=== PATIENT | female | born 1955 | race Caucasian/White ===

== ENCOUNTER → 2017-01-25 | Outpatient (CLI) | payer OTHER ==
[~2017-01-25] MED LIST: NFVALS90T PO
--- OUTSIDE RECORDS SUMMARY | 2017-01-25 10:07 | XMS REPORT | Continuity of Care Document ---
Author Author [facility] Organization [facility] Address Unknown Phone Unavailable Allergies Active Description Code Type Severity Reaction Onset Reported/Identified Relationship to Patient Clinical Status Yes No Known Drug Allergies [id number] Drug Allergy Unknown N/ A 01/20/2011 Medications Problems Date Dx Coded Attending Type Code Diagnosis Diagnosed By 01/20/2011 Ot 881.02 01/20/2011 Ot 882.0 01/20/2011 Ot E000.8 01/20/2011 Ot E849.0 01/20/2011 Ot E906.0 01/20/2011 Ot V06.1 01/02/2016 BE LI MD Ot 729.5 01/02/2016 BE LI MD Ot 729.81 01/16/2016 BE LI MD Ot Z12.31 Procedures Results Encounters ACCT No. Visit Date/Time Discharge Status Pt. Type Provider Facility Loc./Unit Complaint [id number] 04/10/2014 13:55:00 2013 23:59:59 CLS Outpatient BE LI MD [facility] RAD [id number] 01/02/2016 10:21:00 ACT Outpatient BE LI MD [facility] RAD [id number] 01/20/2011 20:50:00 Document Registration
--- NOTE | 2017-01-25 11:06 | Diagnostic Imaging Report ---
Left shoulder 3 radiographs. INDICATION: Injury. FINDINGS: No fracture, dislocation, or radiopaque foreign body seen. The glenohumeral and acromioclavicular joints appear grossly unremarkable. IMPRESSION: Unremarkable exam. Dictated by: Dictated on workstation # [id number]
== END ==
LOC: RAD 10:03
PROVIDERS: ATTEND Family Medicine
DX: M25.512 Pain in left shoulder (principal)
CPT/HCPCS: 73030

== ENCOUNTER 2017-04-27 09:15 | Outpatient (RCR) | payer OTHER ==
--- OUTSIDE RECORDS SUMMARY | 2017-01-28 13:22 | XMS REPORT | Continuity of Care Document ---
Author Author [facility] Organization [facility] Address Unknown Phone Unavailable Allergies Active Description Code Type Severity Reaction Onset Reported/Identified Relationship to Patient Clinical Status Yes No Known Drug Allergies [id number] Drug Allergy Unknown N/ A 01/20/2011 Medications Problems Date Dx Coded Attending Type Code Diagnosis Diagnosed By 01/20/2011 Ot 881.02 01/20/2011 Ot 882.0 01/20/2011 Ot E000.8 01/20/2011 Ot E849.0 01/20/2011 Ot E906.0 01/20/2011 Ot V06.1 01/02/2016 BE LI MD Ot 729.5 01/02/2016 BE LI MD Ot 729.81 01/16/2016 BE LI MD Ot Z12.31 01/25/2017 BE LI MD Ot 729.5 PAIN IN LIMB 01/25/2017 BE LI MD Ot 729.81 SWELLING OF LIMB 01/25/2017 BE LI MD Ot Z12.31 ENCNTR SCREEN MAMMOGRAM FOR MALIGNANT NE Procedures Results Encounters ACCT No. Visit Date/Time Discharge Status Pt. Type Provider Facility Loc./Unit Complaint [id number] 04/10/2014 13:55:00 2013 23:59:59 CLS Outpatient BE LI MD [facility] RAD PAIN SWELLING [id number] 01/25/2017 10:03:00 ACT Outpatient BE LI MD [facility] RAD LT SHOULDER PAIN [id number] 01/02/2016 10:21:00 ACT Outpatient BE LI MD [facility] RAD SCREENING [id number] 01/20/2011 20:50:00 Document Registration
== END 2017-04-28 | disposition home or self-care (01) ==
PROVIDERS: ATTEND Family Medicine
DX: M25.512 Pain in left shoulder (principal)

== ENCOUNTER 2017-04-29 09:10 | Outpatient (RCR) | payer OTHER | END 2017-05-06 09:06 | disposition home or self-care (01) | PROVIDERS: ATTEND Family Medicine | DX: M25.512 Pain in left shoulder (principal) ==

== ENCOUNTER 2020-01-04 14:40 | Emergency (ER) | payer OTHER ==
[~2020-01-04] VITALS: Ht 152 cm; Wt 63.6 kg
[2020-01-04 15:25] LABS: BASOPHILS # (AUTO) 0.1 10^3/uL (0.0-0.1); BASOPHILS % (AUTO) 1 % (0-10); EOSINOPHILS % (AUTO) 12 % (0-10); HEMATOCRIT 40 % (35-52); HEMOGLOBIN 13.1 G/DL (11.5-16.0); LYMPHOCYTES # (AUTO) 1.9 X 10^3 (1.0-4.0); LYMPHOCYTES % (AUTO) 21 % (12-44); MEAN CORPUSCULAR HEMOGLOBIN 29 PG (25-34); MEAN CORPUSCULAR HGB CONC 33 G/DL (32-36); MEAN CORPUSCULAR VOLUME 86 FL (80-99); MONOCYTES % (AUTO) 11 % (0-12); NEUTROPHILS # (AUTO) 4.9 X 10^3 (1.8-7.8); NEUTROPHILS % (AUTO) 56 % (42-75); PLATELET COUNT 325 10^3/uL (130-400); WHITE BLOOD COUNT 8.8 10^3/uL (4.3-11.0)
[2020-01-04 15:29] LABS: INR 0.9 (0.8-1.4); PROTHROMBIN TIME PATIENT 12.8 SEC (12.2-14.7)
[2020-01-04 15:36] LABS: ALANINE AMINOTRANSFERASE 22 U/L (0-55); ALBUMIN 4.5 GM/DL (3.2-4.5); ALKALINE PHOSPHATASE 99 U/L (40-136); BILIRUBIN,TOTAL 0.6 MG/DL (0.1-1.0); BUN/CREATININE RATIO 16; CALCIUM 9.2 MG/DL (8.5-10.1); CARBON DIOXIDE 28 MMOL/L (21-32); CHLORIDE 107 MMOL/L (98-107); CREATININE SERUM 0.89 MG/DL (0.60-1.30); GFR ESTIMATED > 60; GLUCOSE 103 MG/DL (70-105); POTASSIUM 3.8 MMOL/L (3.6-5.0); SODIUM 143 MMOL/L (135-145); TOTAL PROTEIN 7.3 GM/DL (6.4-8.2)
--- NOTE | 2020-01-04 15:40 | Diagnostic Imaging Report ---
PROCEDURE: CT head wo r/o stroke. TECHNIQUE: Multiple contiguous axial images were obtained through the brain without the use of intravenous contrast. Auto Exposure Controls were utilized during the CT exam to meet ALARA standards for radiation dose reduction. INDICATION: Left-sided numbness and left chest numbness. COMPARISON: No prior studies are available for comparison. FINDINGS: Ventricles and sulci are within normal limits. No sulcal effacement or midline shift is identified. No acute intra-axial or extra-axial hemorrhage is detected. Cisterns are patent. Visualized paranasal sinuses are clear. IMPRESSION: No acute intracranial process is detected. Dictated by: Dictated on workstation # [id number]
[2020-01-04 15:41] LABS: FIBRIN DEGRADATION PRODUCTS 0.26 UG/ML (0.00-0.49)
--- NOTE | 2020-01-04 15:48 | Diagnostic Imaging Report ---
INDICATION: Numbness in left arm.. TECHNIQUE: Single view chest 3:41 PM. CORRELATION STUDY: None FINDINGS: The heart size, mediastinal configuration and pulmonary vascularity are within normal limits. The lungs are clear with no consolidating infiltrate. There is no significant effusion or pneumothorax. Calcified granuloma lateral aspect right upper lobe. IMPRESSION: 1. Negative for acute abnormality of the chest. Dictated by: Dictated on workstation # [id number]
[2020-01-04 15:57] LABS: FREE T4 (FREE THYROXINE) 1.14 NG/DL (0.70-1.48)
[2020-01-04 16:04] LABS: BILIRUBIN,URINE NEGATIVE (NEGATIVE); CLARITY,URINE CLEAR; COLOR,URINE YELLOW; GLUCOSE, URINE (UA) NEGATIVE (NEGATIVE); KETONES,URINE NEGATIVE (NEGATIVE); LEUKOCYTE ESTERASE ,URINE NEGATIVE (NEGATIVE); NITRITE,URINE NEGATIVE (NEGATIVE); PROTEIN,URINE NEGATIVE (NEGATIVE)
[2020-01-04] MEDS ORDERED: HOLD METFORMIN - RECEIVED CONTRAST 20 ML VIAL IV SCH (16:15)
[2020-01-04] MEDS ORDERED: NS 100 ML (IVPB) BAG IV ONE (16:15)
[2020-01-04] MEDS ORDERED: IOHEXOL 350 MG/ML 100 ML (OMNIPAQUE 350) VIAL IV ONE (16:15)
[2020-01-04 16:23] LABS: BACTERIA,URINE NEGATIVE /HPF; SQUAMOUS EPITHELIAL CELL,UR RARE /HPF
--- NOTE | 2020-01-04 17:07 | Diagnostic Imaging Report ---
PROCEDURE: CT angiography of the head and CT angiography of the neck with and without contrast. TECHNIQUE: Contiguous noncontrast images were obtained from the skull base through the vertex. After intravenous contrast administration, helical CT angiography of the neck was performed. Source data was reformatted into 3D MIP projections. Delayed post contrast acquisition was also obtained. Auto Exposure Controls were utilized during the CT exam to meet ALARA standards for radiation dose reduction. INDICATION: Left-sided numbness. Comparison: CT head performed earlier the same date. FINDINGS: CTA Neck: The visualized portions of the aortic arch demonstrate no evidence of aneurysm or dissection. Note is made of the origin of the left vertebral artery directly off the aorta. The brachiocephalic artery is normal in course and caliber. The right and left common carotid origins are unremarkable. The origin of the left subclavian artery is patent. The common carotid arteries and internal carotid arteries demonstrate a normal course and caliber. There is calcified atherosclerotic plaque in the bilateral carotid bulbs and proximal internal carotid arteries without flow-limiting stenosis. No evidence of dissection in the carotid systems. The external carotid arteries are patent and unremarkable. The vertebral arteries are codominant. The origin of the right vertebral artery is seen and is unremarkable. The origin of the left vertebral artery is seen and is unremarkable. There is no focal stenosis seen within the neck. There is no dissection. The vertebral arteries are well visualized to up to the level of the basilar artery. The osseous structures of the cervical spine are unremarkable. Included views through the lung apices demonstrate centrilobular emphysema without focal consolidation or mass. CTA brain: Atherosclerotic plaque is seen in the ha of the bilateral terminal internal carotid arteries without significant stenosis. No stenosis is seen in the bilateral anterior, middle, and posterior cerebral arteries. 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 No evidence of aneurysm the [place] of [place]. In the posterior circulation, both of the vertebral arteries demonstrate normal opacification. The vertebral arteries are codominant. Both the right and left PICA arteries are identified. The basilar artery is normal in course and caliber. The terminal branch vessels including the superior cerebellar arteries unremarkable. IMPRESSION: 1. No stenosis or aneurysm in the [place]. 2. No stenosis or dissection the bilateral carotid and vertebral arteries. 3. Centrilobular emphysema in the lung apices. Dictated by: Dictated on workstation # [id number]
[2020-01-04] MEDS ORDERED: ASPIRIN 325 MG (5 GR) TABLET PO ONE (17:45)
--- NOTE | 2020-01-04 17:53 | ED Neurological Problem ---
General Chief Complaint: Neuro-Stroke Like Symptoms Stated Complaint: L SIDE NUMBNESS Nursing Triage Note: PATIENT HERE FOR COMPLAINTS OF NUMBNESS THAT FELT LIKE HER LEFT ARM WAS ASLEEP. SHE STATES IT WENT FROM THE CENTER OF HER BACK BETWEEN HER SHOULDER BLADES TO HER LEFT ARM. IT LASTED FOR ABOUT A MINUTE AND OCCURRED TWICE WITHIN ABOUT 20 MINS OF ARRIVAL TO ER. DENIES ANY OTHER SYMPTOMS. VITALS STABLE. Nursing Sepsis Screen: No Definite Risk Source: patient Exam Limitations: no limitations History of Present Illness Date Seen by Provider: Jan 04, 2020 Time Seen by Provider: 15:10 Initial Comments This 64-year-old woman presents to the emergency room with rather intense paresthesias in the left arm radiating from between the scapula down to the left hand. She was also experiencing paresthesia of the left lower face and to a lesser extent the left lower extremity. She had 2 episodes of this today with the second one occurring about 20 minutes prior to arrival. She has some residual paresthesia now. At triage nursing staff thought she was communicating a brief period of flaccid left upper extremity. However, after discussing in more detail with her later, she states the left arm was never actually week. She is describing more of a paresthesia rather than muscle weakness. She has no focal deficits on exam. Allergies and Home Medications Allergies Coded Allergies: No Known Drug Allergies (Unverified , 01/20/11) Home Medications Valsartan 320 Mg Tablet, 160 MG PO DAILY, (Reported) Patient Home Medication List Home Medication List Reviewed: Yes Review of Systems Review of Systems Constitutional: no symptoms reported Eyes: No Symptoms Reported Ears, Nose, Mouth, Throat: no symptoms reported Respiratory: no symptoms reported Cardiovascular: no symptoms reported Gastrointestinal: no symptoms reported Genitourinary: no symptoms reported : No Musculoskeletal: no symptoms reported Skin: no symptoms reported Psychiatric/Neurological: See HPI Endocrine: No Symptoms Reported Hematologic/Lymphatic: No Symptoms Reported Past Sscjqsk-Dregds-Jvpppj Hx Past Med/Social Hx: Reviewed Nursing Past Med/Soc Hx Patient Social History Alcohol Use: Occasionally Uses Recreational Drug Use: No Smoking Status: Never a Smoker 2nd Hand Smoke Exposure: No Recent Foreign Travel: No Contact w/Someone Who Travel: No Recent Infectious Disease Expo: No Recent Hopitalizations: No Physical Abuse: No Sexual Abuse: No Seasonal Allergies Seasonal Allergies: No Past Medical History Surgeries: No Respiratory: No Cardiac: Yes High Cholesterol, Hypertension Neurological: No Genitourinary: No Gastrointestinal: No Musculoskeletal: No Endocrine: Yes Hypothyroidsim Psychosocial: No Integumentary: No Physical Exam Vital Signs Vital Signs - First Documented 01/04/20 01/04/20 15:00 15:57 Temp 35.5 Pulse 87 Resp 20 B/P (MAP) 150/81 (104) Pulse Ox 96 O2 Delivery Room Air Capillary Refill : Less Than 3 Seconds Height, Weight, BMI Height: '" Weight: lbs. oz. kg; 27.00 BMI Method:Stated General Appearance: WD/WN, no apparent distress HEENT: PERRL/EOMI, normal ENT inspection, pharynx normal Neck: normal inspection Respiratory: lungs clear, normal breath sounds, no respiratory distress, no accessory muscle use Cardiovascular: regular rate, rhythm, no edema, no murmur Gastrointestinal: normal bowel sounds, non tender, soft Extremities: normal inspection, no pedal edema Neurologic/Psychiatric: partner II-XII nml as tested, no motor/sensory deficits, alert, normal mood/affect, oriented x 3, other (Paresthesia of the left upper extremity without true weakness or numbness) Crainal Nerves: normal hearing, normal speech, PERRL Coordination/Gait: normal finger to nose, normal gait Motor/Sensory: no motor deficit, no sensory deficit Skin: normal color, warm/dry Stroke NIH Stroke Scale Assessment Level of Consciousness: 0=Alert (0), Level of Consciousness-Questions: 0=Answers both month/age (0), LOC Commands: 0=Performs both tasks (0), Visual [place]: 0=No visual loss (0), Facial Movement (Facial Paresis): 0=Normal symmetrical mnt (0), Motor Function-Arms Right: 0=No drift (0), Motor Function-Arms Left: 0=No drift (0), Motor Function-Legs Right: 0=No drift (0), Motor Function-Legs Left: 0=No drift (0), Sensory: 0=Normal:no loss (0), Best Language: 0=No aphasia (0), Dysarthria: 0=Normal (0), Extinction & Inattention: 0=No abnormality (0), Total: 0 Progress/Results/Core Measures Results/Orders Lab Results Laboratory Tests Test 01/04/20 14:45 01/04/20 16:00 01/04/20 16:01 Range/Units White Blood Count 8.8 4.3-11.0 10^3/uL Red Blood Count 4.59 4.35-5.85 10^6/uL Hemoglobin 13.1 11.5-16.0 G/DL Hematocrit 40 35-52 % Mean Corpuscular Volume 86 80-99 FL Mean Corpuscular Hemoglobin 29 25-34 PG Mean Corpuscular Hemoglobin Concent 33 32-36 G/DL Red Cell Distribution Width 14.0 10.0-14.5 % Platelet Count 325 130-400 10^3/uL Mean Platelet Volume 10.0 7.4-10.4 FL Neutrophils (%) (Auto) 56 42-75 % Lymphocytes (%) (Auto) 21 12-44 % Monocytes (%) (Auto) 11 0-12 % Eosinophils (%) (Auto) 12 H 0-10 % Basophils (%) (Auto) 1 0-10 % Neutrophils # (Auto) 4.9 1.8-7.8 X 10^3 Lymphocytes # (Auto) 1.9 1.0-4.0 X 10^3 Monocytes # (Auto) 1.0 0.0-1.0 X 10^3 Eosinophils # (Auto) 1.0 H 0.0-0.3 10^3/uL Basophils # (Auto) 0.1 0.0-0.1 10^3/uL Prothrombin Time 12.8 12.2-14.7 SEC INR Comment 0.9 0.8-1.4 Activated Partial Thromboplast Time 33 24-35 SEC D-Dimer 0.26 0.00-0.49 UG/ML Sodium Level 143 135-145 MMOL/L Potassium Level 3.8 3.6-5.0 MMOL/L Chloride Level 107 98-107 MMOL/L Carbon Dioxide Level 28 21-32 MMOL/L Anion Gap 8 5-14 MMOL/L Blood Urea Nitrogen 14 7-18 MG/DL Creatinine 0.89 0.60-1.30 MG/DL Estimat Glomerular Filtration Rate > 60 BUN/Creatinine Ratio 16 Glucose Level 103 70-105 MG/DL Calcium Level 9.2 8.5-10.1 MG/DL Corrected Calcium 8.8 8.5-10.1 MG/DL Total Bilirubin 0.6 0.1-1.0 MG/DL Aspartate Amino Transf (AST/SGOT) 22 5-34 U/L Alanine Aminotransferase (ALT/SGPT) 22 0-55 U/L Alkaline Phosphatase 99 40-136 U/L Troponin I < 0.028 <0.028 NG/ML Total Protein 7.3 6.4-8.2 GM/DL Albumin 4.5 3.2-4.5 GM/DL Thyroid Stimulating Hormone (TSH) 0.36 0.35-4.94 UIU/ML Free Thyroxine 1.14 0.70-1.48 NG/DL Urine Color YELLOW Urine Clarity CLEAR Urine pH 6.0 5-9 Urine Specific Reeder 1.010 L 1.016-1.022 Urine Protein NEGATIVE NEGATIVE Urine Glucose (UA) NEGATIVE NEGATIVE Urine Ketones NEGATIVE NEGATIVE Urine Nitrite NEGATIVE NEGATIVE Urine Bilirubin NEGATIVE NEGATIVE Urine Urobilinogen 0.2 < = 1.0 MG/DL Urine Leukocyte Esterase NEGATIVE NEGATIVE Urine RBC (Auto) TRACE-I NEGATIVE Urine RBC NONE /HPF Urine WBC NONE /HPF Urine Squamous Epithelial Cells RARE /HPF Urine Crystals NONE /LPF Urine Bacteria NEGATIVE /HPF Urine Casts NONE /LPF Urine Mucus NEGATIVE /LPF Urine Culture Indicated NO Glucometer 120 H 70-110 MG/DL My Orders Orders - CHRISTINE MUSTAFA MD Cbc With Automated Diff (01/04/20 15:18) Protime With Inr (01/04/20 15:18) Partial Thromboplastin Time (01/04/20 15:18) Comprehensive Metabolic Panel (01/04/20 15:18) Fibrin Degradation Products (01/04/20 15:18) Troponin I (01/04/20 15:18) Ua Culture If Indicated (01/04/20 15:18) Chest 1 View, Ap/Pa Only (01/04/20 15:18) Ekg Tracing (01/04/20 15:18) Accucheck Stat ONCE (01/04/20 15:18) Ed Iv/Invasive Line Start (01/04/20 15:18) Ed Iv/Invasive Line Start (01/04/20 15:18) Vital Signs Stroke Patient Q15M (01/04/20 15:18) Ct Head Wo-R/O Stroke (01/04/20 15:18) O2 (01/04/20 15:18) Intake & Output 06,14,22 (01/04/20 15:18) Monitor-Rhythm Ecg Trace Only (01/04/20 15:18) Dysphagia Screening Tool (01/04/20 15:18) Thyroid Stimulating Hormone (01/04/20 15:20) Free T4 (Free Thyroxine) (01/04/20 15:20) Ct Angio Head/Neck (01/04/20 15:54) Iohexol Injection (Omnipaque 350 Mg/Ml 1 (01/04/20 16:15) Received Contrast (Hold Metformin- Contr (01/04/20 16:15) Ns (Ivpb) (Sodium Chloride 0.9% Ivpb Bag (01/04/20 16:15) Aspirin Tablet (Aspirin Tablet) (01/04/20 17:45) Medications Given in ED Vital Signs/I&O 01/04/20 01/04/20 01/04/20 15:00 15:57 18:00 Temp 35.5 35.5 Pulse 87 87 Resp 20 20 B/P (MAP) 150/81 (104) 150/81 (104) Pulse Ox 96 99 99 O2 Delivery Room Air Room Air Blood Pressure Mean: 104 FSBG Bedside Testing Finger Stick Blood Glucose: 120 Progress Progress Note : Time: 17:52 Progress Note Workup was unremarkable. Patient never did have any true measurable neurologic deficits and the paresthesias resolved. I was concerned about the paresthesia including both the face and the upper extremity which would not necessarily be consistent with a cervical radiculopathy. For this reason a stroke activation was paged and a thorough workup performed. Patient was advised to follow up closely with her primary care provider and discuss options for further workup which might include MRI of the head and/or cervical spine. She passed dysphagia screen. Aspirin was given and patient was discharged home with return precautions. Initial ECG Impression Date: Jan 04, 2020 Initial ECG Impression Time: 14:49 Initial ECG Rate: 88 Initial ECG Rhythm: Normal Sinus Initial ECG Intervals: Normal Initial ECG Impression: Normal Comment Normal sinus rhythm with no ST elevation or depression. No abnormal intervals or axis deviation. Diagnostic Imaging Diagonstic Imaging: CT Plain Films/CT/US/NM/MRI: head Comments CT head viewed by me and report reviewed. See report below: NAME: [facility] REC#: [id number] PT STATUS: REG ER : 1955 PHYSICIAN: CHRISTINE MUSTAFA MD ADMIT DATE: 01/04/20/ER Signed Date of Exam:01/04/20 CT HEAD WO-R/O STROKE PROCEDURE: CT head wo r/o stroke. TECHNIQUE: Multiple contiguous axial images were obtained through the brain without the use of intravenous contrast. Auto Exposure Controls were utilized during the CT exam to meet ALARA standards for radiation dose reduction. INDICATION: Left-sided numbness and left chest numbness. COMPARISON: No prior studies are available for comparison. FINDINGS: Ventricles and sulci are within normal limits. No sulcal effacement or midline shift is identified. No acute intra-axial or extra-axial hemorrhage is detected. Cisterns are patent. Visualized paranasal sinuses are clear. IMPRESSION: No acute intracranial process is detected. Dictated by: Dictated on workstation # [id number] Dict: 01/04/20 1537 Trans: 01/04/20 1606 IMS [id number] Interpreted by: COLBY RIVERS MD Electronically signed by: COLBY RIVERS MD 01/04/20 1606 Diagonstic Imaging: Xray Plain Films/CT/US/NM/MRI: chest Comments NAME: [facility] REC#: [id number] PT STATUS: REG ER : 1955 PHYSICIAN: CHRISTINE MUSTAFA MD ADMIT DATE: 01/04/20/ER Signed Date of Exam:01/04/20 CHEST 1 VIEW, AP/PA ONLY INDICATION: Numbness in left arm.. TECHNIQUE: Single view chest 3:41 PM. CORRELATION STUDY: None FINDINGS: The heart size, mediastinal configuration and pulmonary vascularity are within normal limits. The lungs are clear with no consolidating infiltrate. There is no significant effusion or pneumothorax. Calcified granuloma lateral aspect right upper lobe. IMPRESSION: 1. Negative for acute abnormality of the chest. Dictated by: Dictated on workstation # [id number] Dict: 01/04/20 1545 Trans: 01/04/20 1653 DO [id number] Interpreted by: CAROL GOOD DO Electronically signed by: CAROL GOOD DO 01/04/20 1653 Diagonstic Imaging: Xray Plain Films/CT/US/NM/MRI: other (Angiogram head and neck) Comments NAME: [facility] REC#: [id number] PT STATUS: REG ER : 1955 PHYSICIAN: CHRISTINE MUSTAFA MD ADMIT DATE: 01/04/20/ER Signed Date of Exam:01/04/20 CT ANGIO HEAD/NECK PROCEDURE: CT angiography of the head and CT angiography of the neck with and without contrast. TECHNIQUE: Contiguous noncontrast images were obtained from the skull base through the vertex. After intravenous contrast administration, helical CT angiography of the neck was performed. Source data was reformatted into 3D MIP projections. Delayed post contrast acquisition was also obtained. Auto Exposure Controls were utilized during the CT exam to meet ALARA standards for radiation dose reduction. INDICATION: Left-sided numbness. Comparison: CT head performed earlier the same date. FINDINGS: CTA Neck: The visualized portions of the aortic arch demonstrate no evidence of aneurysm or dissection. Note is made of the origin of the left vertebral artery directly off the aorta. The brachiocephalic artery is normal in course and caliber. The right and left common carotid origins are unremarkable. The origin of the left subclavian artery is patent. The common carotid arteries and internal carotid arteries demonstrate a normal course and caliber. There is calcified atherosclerotic plaque in the bilateral carotid bulbs and proximal internal carotid arteries without flow-limiting stenosis. No evidence of dissection in the carotid systems. The external carotid arteries are patent and unremarkable. The vertebral arteries are codominant. The origin of the right vertebral artery is seen and is unremarkable. The origin of the left vertebral artery is seen and is unremarkable. There is no focal stenosis seen within the neck. There is no dissection. The vertebral arteries are well visualized to up to the level of the basilar artery. The osseous structures of the cervical spine are unremarkable. Included views through the lung apices demonstrate centrilobular emphysema without focal consolidation or mass. CTA brain: Atherosclerotic plaque is seen in the ha of the bilateral terminal internal carotid arteries without significant stenosis. No stenosis is seen in the bilateral anterior, middle, and posterior cerebral arteries. 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 No evidence of aneurysm the [place] of [place]. In the posterior circulation, both of the vertebral arteries demonstrate normal opacification. The vertebral arteries are codominant. Both the right and left PICA arteries are identified. The basilar artery is normal in course and caliber. The terminal branch vessels including the superior cerebellar arteries unremarkable. IMPRESSION: 1. No stenosis or aneurysm in the [place] of [place]. 2. No stenosis or dissection the bilateral carotid and vertebral arteries. 3. Centrilobular emphysema in the lung apices. Dictated by: Dictated on workstation # [id number] Departure Impression Primary Impression: Paresthesia of left arm Additional Impression: Facial paresthesia Disposition: HOME, SELF-CARE Condition: Improved Departure-Patient Inst. Decision time for Depature: 17:40 Referrals: BE LI MD (PCP) Primary Care Physician Patient Instructions: Paresthesias (DC) Add. Discharge Instructions: Follow-up with Dr. Li as soon as possible. Please call his office in the morning. In the meantime, take a full aspirin daily. Return to the emergency room if you have any worsening of symptoms, especially if you develop weakness of an extremity, drooping of the face, slurring of speech, or any other significant neurologic changes. Discuss further workup that may be appropriate with Dr. Li. This might include MRI imaging of the brain and/or cervical spine. All discharge instructions reviewed with patient and/or family. Voiced understanding. Copy Copies To 1: BE LI MD, JOSHUA T MD Jan 04, 2020 17:53
[2020-01-04 18:00] VITALS: BP 150/81
== END 2020-01-04 18:10 | disposition home or self-care (01) ==
LOC: EDUNIT# 14:40 → ER 14:41
DX: R20.2 Paresthesia of skin (principal); I10 Essential (primary) hypertension
CPT/HCPCS: 36415; 70450; 70496; 70498; 71045; 80053; 81000; 82962; 84439; 84443; 84484; 85025; 85379; 85610; 85730; 93005; 93041

== ENCOUNTER → 2020-01-17 | Outpatient (CLI) | payer OTHER ==
--- NOTE | 2020-01-17 15:37 | Diagnostic Imaging Report ---
PROCEDURE: MR imaging of the brain without contrast. TECHNIQUE: Multiplanar, multisequence MR imaging of the brain was performed without contrast. INDICATION: Facial paresthesias. COMPARISON: CTA head and neck 01/04/2020. FINDINGS: Mild generalized cerebral and cerebellar parenchymal volume loss. Moderate nonspecific T2 hyperintensities in the supratentorial white matter compatible with chronic small vessel ischemic change. No evidence of intracranial hemorrhage. No restricted water diffusion or hemosiderin deposition. Normal morphology including the major midline structures, sella, posterior fossa, and cerebellopontine angles. Normal intracranial flow voids. No hydrocephalus or extra-axial fluid collections. The orbits are unremarkable. The paranasal sinuses and mastoids are clear. Normal bone marrow signal. IMPRESSION: Age-appropriate MRI of the brain. No acute intracranial findings. Dictated by: Dictated on workstation # [id number]
--- NOTE | 2020-01-17 15:54 | Diagnostic Imaging Report ---
PROCEDURE: MR imaging cervical spine without contrast. TECHNIQUE: Multiplanar, multisequence MR imaging of the cervical spine was performed without contrast. INDICATION: Episodic tongue numbness extending down the left side. COMPARISON: I have no previous for direct comparison, the study correlated with CT of the neck of 01/04/2020. FINDINGS: No paravertebral mass, hemorrhage, or fluid collection. The cervical spinal cord has a normal volume, morphology, and signal intensity. CSF circumscribes the cord at each vertebral body and disc space level. The ligamentous structures are intact. The alignment is normal. There is mild desiccation and bulging of the discs at C3-C4, C4-C5, and C5-C6 without substantial resultant canal or foraminal stenosis. IMPRESSION: 1. Mild spondylosis without significant stenosis. Normal cord. Normal alignment. No acute-appearing abnormality. 2. 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 No suspicious finding. Dictated by: Dictated on workstation # [id number]
== END ==
LOC: RAD 14:02
PROVIDERS: ATTEND Family Medicine
DX: M47.22 Other spondylosis with radiculopathy, cervical region (principal)
CPT/HCPCS: 70551; 72141

== ENCOUNTER → 2021-04-14 | Outpatient (CLI) | payer MEDICARE, OTHER ==
--- NOTE | 2021-04-14 09:18 | Diagnostic Imaging Report ---
INDICATION: Routine screening. Comparison is made with prior mammogram from 01/02/2016. 2-D and 3-D bilateral screening mammography was performed with CAD. Both breasts are heterogeneously dense, limiting the sensitivity of mammography. Scattered benign calcifications are noted bilaterally. No mass or malignant appearing microcalcifications are seen. Axillae are unremarkable. IMPRESSION: BI-RADS Category 2 No mammographic features suspicious for malignancy are identified. ACR BI-RADS Category 2: Benign findings. Result letter will be mailed to the patient. Note: At least 10% of breast cancer is not imaged by mammography. Dictated by: Dictated on workstation # [id number]
== END ==
LOC: RAD 07:30
PROVIDERS: ATTEND Family Medicine
DX: Z12.31 Encounter for screening mammogram for malignant neoplasm of breast (principal)
CPT/HCPCS: 77063; 77067